=== PATIENT | male | born 1970 | race Caucasian/White ===

== ENCOUNTER → 2019-05-25 | Outpatient (CLI) | payer OTHER | END | disposition home or self-care (01) | LOC: RAD 14:15 | PROVIDERS: ATTEND Family Medicine | DX: S02.2XXA Fracture of nasal bones, initial encounter for closed fracture (principal); J32.4 Chronic pansinusitis; X58.XXXA Exposure to other specified factors, initial encounter; Y93.89 Activity, other specified; Y92.89 Other specified places as the place of occurrence of the external cause; Y99.8 Other external cause status | CPT/HCPCS: 70486 ==